=== PATIENT | female | born 1990 | race Caucasian/White ===

== ENCOUNTER 2016-11-13 10:39 | Inpatient (IN) | payer OTHER ==
[~2016-11-13] VITALS: Ht 160 cm; Wt 55.0 kg
[~2016-11-13 10:39] MED LIST: FLEXERIL10 MG PO; IBUPROFEN800 MG PO; NAPROSYN500 MG PO; NORCO 5/3251 TABLET PO; PRENATAL TABLE1 EAC3 PO; PROMETHAZINE HC25 M1 PO; REGLAN10 MG PO; VENTOLIN HFA18 GM IH; ZANTAC150 MG PO
[2016-11-13] MEDS ORDERED: ZANTAC150 MG PO ×2 (11:05→17:24)
[2016-11-13 12:38] VITALS: BP 132/92
[2016-11-13 13:11] VITALS: BP 112/85
[2016-11-13 13:41] LABS: HEMATOCRIT 34.9 % (36.0-46.0); MCH 32.5 PG (29.0-34.0); MCHC 34.1 G/DL (30.0-36.0); MCV 95.4 FL (83-99); MEAN PLAT.VOLUME 11.2 uM^3 (9.5-12.4); PLATELET COUNT 188 K/uL (156-360); RBC DIS.WIDTH-CV 12.4 % (11.8-14.6); RBC DIS.WIDTH-SD 43.5 % (39-53); RED BLOOD COUNT 3.66 M/uL (3.80-5.20); WHITE BLOOD COUNT 20.5 K/uL (4.1-10.2)
[2016-11-13 13:59] LABS: ANION GAP 7 MEQ/L (2-14); CHLORIDE 105 MEQ/L (99-109); POTASSIUM 3.3 MEQ/L (3.7-5.4); SAMPLE HEMOLYSIS CHECK 0; SAMPLE ICTERIC CHECK 0; SAMPLE LIPEMIA CHECK 0; SODIUM 135 MEQ/L (136-147); TOTAL BILIRUBIN 0.4 MG/DL (0.0-1.0)
[2016-11-13 14:04] LABS: ALKALINE PHOSPHATASE 174 IU/L (3-129); GFR ESTIMATE (CALCULATED) > 59 mL/min/; GLUCOSE 75 mg/dL (70-99); UREA NITROGEN (BUN) 7 mg/dL (9-23)
[2016-11-13 15:47] LABS: AMPHETAMINES QUANT VALUE 0 NG/ML; BARBITUATES QUANT VALUE 0 NG/ML; BENZODIAZEPINES QUANT VALUE 0 NG/ML; BENZODIAZEPINES, URINE SCREEN Negative (200 ng/mL); MARIJUANA QUANT VALUE 0 NG/ML; OPIATES QUANTITATIVE VALUE 0 NG/ML; PHENCYCLIDINE QUANT VALUE 0 NG/ML
[2016-11-13] MEDS ORDERED: PERCOCET 10/1 TABLET PO (17:25)
[2016-11-13] MEDS ORDERED: ZOFRAN4 MG PO (17:30)
[2016-11-13 21:56] LABS: ANISOCYTOSIS 1+; BURR CELLS 3+; EOSINOPHIL ABS CT 0; INSTRUMENT ABS NEUTROPHIL CT 16.2 K/uL; LYMPHOCYTES 4.4 % (15.0-45.0); PLAT.SUFFICIENCY ADEQUATE; POIKILOCYTOSIS 2+; POLYCHROMASIA 1+; SEG.NEUTROPHILS 87.8 % (46.0-76.0)
[2016-11-14 00:38] VITALS: BP 102/68
[2016-11-14 03:14] VITALS: BP 118/80
[2016-11-14 07:01] VITALS: BP 118/77
[2016-11-14 08:05] LABS: BASOPHIL COUNT 0.1 K/uL (0-0.1); EOSINOPHIL (%) 0.4 % (0-5); EOSINOPHIL COUNT 0.1 K/uL (0-0.3); HEMATOCRIT 28.5 % (36.0-46.0); IMMATURE GRANULOCYTE (%) 1.2 % (0.0-0.7); IMMATURE GRANULOCYTE COUNT 0.3 K/uL; INSTRUMENT ABS NEUTROPHIL CT 15.2 K/uL; LYMPHOCYTE COUNT 3.5 K/uL (1.0-2.8); MCH 32.8 PG (29.0-34.0); MCV 96.3 FL (83-99); MEAN PLAT.VOLUME 11.7 uM^3 (9.5-12.4); MONOCYTE (%) 8.4 % (3-12); MONOCYTE COUNT 1.8 K/uL (0-0.8); NEUTROPHIL (%) 73.1 % (45-76); NEUTROPHIL COUNT 15.2 K/uL (1.8-6.4); PLATELET COUNT 215 K/uL (156-360); RBC DIS.WIDTH-CV 12.4 % (11.8-14.6); RBC DIS.WIDTH-SD 43.3 % (39-53); RED BLOOD COUNT 2.96 M/uL (3.80-5.20); WHITE BLOOD COUNT 20.8 K/uL (4.1-10.2)
[2016-11-14 15:44] VITALS: BP 141/82
[2016-11-14 23:23] VITALS: BP 147/82
[2016-11-15 08:03] VITALS: BP 143/100
[2016-11-15 09:33] VITALS: BP 131/81
[2016-11-15] MEDS ORDERED: IBUPROFEN800 MG PO (10:39)
[2016-11-15] MEDS ORDERED: FERROUS SULFAT325 MG PO (10:39)
[2016-11-15 15:13] VITALS: BP 128/79
== END 2016-11-15 17:01 | disposition home or self-care (01) | DRG 767 ==
LOC: LDRP-OP 10:39 → 2WEST 10:40 → LDRP-OP 12-19 11:29
PROVIDERS: Advanced Practice Midwife; Obstetrics & Gynecology
PROC: 10907ZC Drainage of Amniotic Fluid, Therapeutic from Products of Conception, Via Natural or Artificial Opening (ICD-10-PCS; principal; 2016-11-13)
PROC: 10E0XZZ Delivery of Products of Conception, External Approach (ICD-10-PCS; principal; 2016-11-13)
PROC: 10D17ZZ Extraction of Products of Conception, Retained, Via Natural or Artificial Opening (ICD-10-PCS; principal; 2016-11-13)
DX: O99.324 Drug use complicating childbirth (principal); O72.2 Delayed and secondary postpartum hemorrhage; O73.0 Retained placenta without hemorrhage; F11.10 Opioid abuse, uncomplicated; F12.10 Cannabis abuse, uncomplicated; O99.334 Smoking (tobacco) complicating childbirth; F17.210 Nicotine dependence, cigarettes, uncomplicated; Z3A.37 37 weeks gestation of pregnancy; Z37.0 Single live birth
CPT/HCPCS: 80053; 80306 90; 85025; 86850; 86900; 86901; 88305; J0690; J2250; J3010; J7120

== ENCOUNTER 2017-12-29 15:32 | Emergency (ER) | payer OTHER ==
[~2017-12-29] VITALS: Ht 160 cm; Wt 41.3 kg
[~2017-12-29 15:32] MED LIST changes: +FERROUS SULFAT325 MG PO; +PERCOCET 10/1 TABLET PO; +ZOFRAN4 MG PO
[2017-12-29 15:46] VITALS: BP 114/84
== END 2017-12-29 16:30 | disposition home or self-care (01) ==
LOC: EME 15:32
DX: K08.89 Other specified disorders of teeth and supporting structures (principal); S00.83XA Contusion of other part of head, initial encounter; W20.8XXA Other cause of strike by thrown, projected or falling object, initial encounter; Z91.010 Allergy to peanuts
CPT/HCPCS: 99281; 99283